=== PATIENT | male | born 1985 | race Caucasian/White ===

== ENCOUNTER 2019-05-02 22:12 | Emergency (ER) | payer OTHER, SELFPAY ==
[2019-05-02 22:15] VITALS: BP 175/105; PULSE 120; RESP 18; O2SAT 95; BMI 45.9
[2019-05-02 22:22] VITALS: TEMP 36.9
--- NOTE | 2019-05-02 23:29 | ED_ITS ---
HPI - Extremity Problem General: Chief complaint: Extremity Injury, Upper Stated complaint: Left arm swelled/painful Time Seen by Provider: 05/02/19 22:24 History of Present Illness: HPI Narrative: Patient is a 33-year-old male comes into the ED with left extremity pain that starts at the elbow and goes down into the wrist. 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 Patient says he started this morning when he woke up and he denies any trauma or recent injury to left arm that caused acute pain. While in the room patient started complaining that he started to feel hot and like he cannot pass out. He told me that he has a history of panic attacks and this feels like the start of a panic attack coming on. Patient denies any chest pain, shortness of breath, abdominal pain, nausea, vomiting, diarrhea, constipation, blood in the stool, hematuria, dysuria or numbness tingling to extremities. Review of Systems General: Reports: 10 or more systems reviewed and unremarkable except in HPI and below PFSH ED PFSH: Statuses (acute, chronic, etc) shown below reflect problem list status as previously entered and may not be historically accurate Social History Smoking and tobacco status: never smoked Physical Exam Narrative: EXAM NARRATIVE: During physical exam patient started complaining that he felt warm and lightheaded like he is given a pass. He stated that these symptoms are similar to his prior panic attacks. Patient did start to look a little pale on the face. Const: COMMON NORMALS: oriented x3 HENMT: COMMON NORMALS: normocephalic HEAD & SCALP: normocephalic MOUTH: oral and palatal mucosa normal THROAT: posterior oropharynx normal and uvula midline Neck/C-Spine: COMMON NORMALS: supple GENERAL: Yes normal visual inspection Resp: COMMON NORMALS: normal respiratory effort, no retractions, no use of accessory muscles and clear to auscultation bilaterally AUSCULTATION: clear to auscultation bilaterally Cardio: COMMON NORMALS: regular rate, regular rhythm, S1 normal heart sound, S2 normal heart sound, no gallops, no clicks, no murmurs and peripheral pulses 2+ throughout RATE: regular rate RHYTHM: regular rhythm HEART SOUNDS: S1 normal and S2 normal PERIPHERAL PULSES: pulses 2+ throughout GI: COMMON NORMALS: normal to inspection, nondistended, normoactive bowel sounds, soft to palpation, non-tender and no masses PALPATION: Yes soft : COMMON NORMALS: Yes no CVA tenderness BLADDER/KIDNEY EXAM: Yes no CVA tenderness Back/Pelvis: COMMON NORMALS: no CVA tenderness Extremity: LEFT UPPER EXTREMITY: Yes elbow joint Left elbow: Yes inspection (normal), Yes palpation (moderate tenderness on lat and medial), Yes ROM (elbow flexion limited due to pain) and Yes neurovascular exam (normal) and Yes hand & digits Left hand and digits: Yes inspection (Generalized swelling in left hand.), Yes ROM (normal) and Yes neurovascular exam (intact) Neuro: COMMON NORMALS: oriented x3 Course ED course: All in the ED patient's started feeling more like he was having a panic attack. Explained that he has a history of panic attacks and felt like this was the start of one coming on. Patient was then given a dose of Ativan and his symptoms improved. X-ray was performed on the left elbow was negative showing no acute abnormalities. Ultrasound of left Upper extremity Showed no clots. EKG was normal sinus rhythm and troponin were negative. Vital Signs: Vital signs: Vital Signs Temperature 97.8 F 05/03/19 01:47 Pulse Rate 74 05/03/19 01:47 Respiratory Rate 16 05/03/19 01:47 Blood Pressure 142/81 05/03/19 01:47 Pulse Oximetry 97 05/03/19 01:47 MDM - Extremity (Nontraumatic) MDM Narrative: Medical decision making narrative: Patient comes to the ED with left elbow pain. Physical exam showed soft tissue tenderness to left elbow and some mild swelling in left hand. Ultrasound of left upper extremity was negative for clots. X-ray showed no acute fractures. Patient started developing possible panic attack symptoms while in the ED and was given Ativan and his symptoms improved. An EKG showed normal sinus rhythm and troponins were negative without any cardiac cause. Patient was diagnosed with left elbow tendinitis and put on prescription for prednisone and told to take Aleve For pain. Apply ice and rest although. Follow-up with primary care doctor in 5-7 days. Patient agreed with and understood plan. Lab Data: Attestation: I reviewed the patient's lab results. Labs: Lab Results 05/02/19 Range/Units 23:58 Troponin T Otilio anderson 8 (0-15) ng/mL Discharge Plan Discharge Patient Disposition: Home, Self-Care Clinical Impression: Tendonitis of elbow, left Condition: Stable Prescriptions: New prednisone 20 mg tablet 20 mg PO TID 5 Days Qty: 15 RF: 0 No Action amlodipine 5 mg Tablet 5 mg PO DAILY RF: 0 Discharge Orders: Discharge Order (Routine); Ordered 05/03/19 Ordered By: Jung Rod Discharge Diet: Regular Discharge Activity: Increase activity as tolerated Activity Restrictions/Additional Instructions: Follow-up with your primary care doctor in 5-7 days for reevaluation. For the next couple days try to rest and limit activity with left arm. Apply ice and take [id number] Aleve for pain and inflammation. Take full course of steroids as prescribed. Discharge Date/Time: 05/03/19 01:49 Coding Level of Care Code ED Education Program Coordinator for Debbie Dnenis
--- NOTE | 2019-05-02 23:29 | ECG_ITS ---
Measurements Intervals [place] Rate: 79 P: 20 LA: 157 QRS: -8 QRSD: 104 T: 11 QT: 360 QTc: 414 SINUS RHYTHM WITH SINUS ARRHYTHMIA No previous ECG available for comparison Electronically Signed On 05-03-2019 19:17:03 [employer]ANCE [employer]PERATIONS REP by Julia Beltran M.D. [email or web address]
[2019-05-02] MEDS: predniSONE 20 mg Tablet 60 MG PO (23:51)
[2019-05-02] MEDS: ketorolac 30 mg/mL INJ IM (23:51)
[2019-05-02] MEDS: LORazepam 1 mg Tablet PO (23:51)
--- NOTE | 2019-05-02 23:53 | XRR_ITS ---
PROCEDURE INFORMATION: Exam: XR Left Elbow Exam date and time: 05/03/2019 12:14 AM Age: 33 years old Clinical indication: Swelling; Elbow; Left; Additional info: Pain and limited rom TECHNIQUE: Imaging protocol: XR Left elbow. Views: 1 or 2 views. COMPARISON: No relevant prior studies available. FINDINGS: Bones/joints: Normal. Soft tissues: Normal. XR/XR elbow LT 2V [id number] IMPRESSION: No acute findings.
--- NOTE | 2019-05-02 23:53 | USCV_ITS ---
Meek Montgomery Age: 33 Gender: M : 1985 Exam Date: 05/03/2019 00:27 Ordering Phys: Jung Rod Technologist: Shawanda Ceron Exam Location: [facility] [place] Indication: PAIN IN LT ARM HISTORY: Pain in lt arm PROCEDURES: Venous duplex imaging was performed in only the left upper extremity. The following venous structures were evaluated: internal jugular vein, subclavian vein, axillary vein, and brachial veins. In addition, the basilic vein, cephalic vein, radial vein, and ulnar vein. Serial compression, augmentation maneuvers, and spectral Doppler flow evaluation were performed. FINDINGS: No DVT seen in any vessel examined The veins were found to be easily compressible with spontaneous blood flow. Non pulsatile flow pattern. CONCLUSIONS No evidence of thrombosis in the above-mentioned identifiable veins Dr Julia Beltran MD [facility] (Electronically Signed) Final Date: 03 May 2019 15:36 S
[2019-05-03 00:27] LABS: Troponin(5th) Baseline 8 ng/mL (0-15)
[2019-05-03 01:47] VITALS: BP 142/81; PULSE 74; RESP 16; TEMP 36.6; O2SAT 97
== END 2019-05-03 01:49 | disposition home or self-care (01) ==
PROVIDERS: Emergency Provider Physician Assistant
DX: M77.9 Enthesopathy, unspecified (principal)
CPT/HCPCS: 73070; 84484; 93005; 93971; 96372; 99281; J1885; J7512